=== PATIENT | male | born 1985 | race Caucasian/White ===

== ENCOUNTER 2018-09-14 18:10 | Emergency (ER) | payer OTHER ==
[~2018-09-14] VITALS: Ht 167.6 cm; Wt 77.1 kg
[~2018-09-14 18:10] MED LIST: 'PARAFON FORTE500 M1 PO; ANAPROX DS550 MG PO; ANTIBIOTIC O500 U/GM T; HYDROCODONE BIT1 T11 PO; KEFLEX500 MG PO; NAPROSYN500 MG PO; ZANTAC150 MG PO
[2018-09-14] MEDS ORDERED: CEPHALEXIN500 M1 PO (19:23)
[2018-09-14] MEDS ORDERED: ANTIBIOTIC28.4 GM T (19:23)
== END 2018-09-14 19:30 | disposition home or self-care (01) ==
LOC: ED 18:10
DX: S71.112A Laceration without foreign body, left thigh, initial encounter (principal); Z23 Encounter for immunization; Z79.2 Long term (current) use of antibiotics; Z79.899 Other long term (current) drug therapy; W26.8XXA Contact with other sharp object(s), not elsewhere classified, initial encounter; Y93.89 Activity, other specified; Y92.89 Other specified places as the place of occurrence of the external cause; Y99.8 Other external cause status

== ENCOUNTER 2020-08-20 15:34 | Emergency (ER) | payer OTHER ==
[~2020-08-20] VITALS: Ht 167.6 cm; Wt 80.7 kg
[~2020-08-20 15:34] MED LIST changes: +ANTIBIOTIC28.4 GM T; +CEPHALEXIN500 M1 PO
== END 2020-08-20 17:45 | disposition home or self-care (01) ==
LOC: ED 15:34
DX: M94.0 Chondrocostal junction syndrome [Tietze] (principal); K21.9 Gastro-esophageal reflux disease without esophagitis; Z98.890 Other specified postprocedural states

== ENCOUNTER 2022-06-30 21:30 | Emergency (ER) | payer BC ==
[~2022-06-30] VITALS: Ht 167.6 cm; Wt 81.6 kg
[2022-06-30 22:54] LABS: HEMATOCRIT 44.9 % (42.0-52.0); MEAN CELL VOLUME 86.8 fl (80.0-94.0); MEAN CORPUSCULAR HGB 29.2 pg (27.0-31.0); MEAN CORPUSCULAR HGB CONC 33.6 g/dl (33.0-37.0); MEAN PLATELET VOLUME 9.9 fl (9.6-12.3); PLATELET COUNT AUTOMATED 236 10*3/uL (130-400); RED BLOOD COUNT 5.17 10*6/uL (4.50-5.90); RED CELL DISTRI WIDTH 11.6 % (0-14.5); WHITE BLOOD COUNT 12.8 10*3/uL (4.8-10.8)
[2022-06-30 23:05] LABS: MANUAL DIFF REFLEX YES
[2022-06-30 23:16] LABS: PLATELET SUFFICIENCY NORMAL (NORMAL); TOTAL CELLS COUNTED 100 #CELLS
[2022-06-30 23:17] LABS: BUN 20 mg/dl (9-23); CHLORIDE 104 mmol/L (98-107); POTASSIUM 4.7 mmol/L (3.4-5.1)
[2022-07-01] MEDS ORDERED: ONDANSETRON4 MG SL (00:13)
== END 2022-07-01 00:20 | disposition home or self-care (01) ==
LOC: ED 21:30
PROVIDERS: Emergency Medicine
DX: A08.4 Viral intestinal infection, unspecified (principal); E86.0 Dehydration; Z98.890 Other specified postprocedural states; F10.90 Alcohol use, unspecified, uncomplicated